=== PATIENT | female | born 1985 | race Hispanic/Latino ===

== ENCOUNTER 2017-08-06 18:51 | Emergency (ER) | payer OTHER, SELFPAY ==
[2017-08-06] MEDS ORDERED: Lidocaine 1% w/Epinephrine 1:100K 20 ML VIAL ONE (19:25)
[2017-08-06] MEDS ORDERED: Bacitracin Zinc 1 Packet ONE (19:25)
[2017-08-06] MEDS ORDERED: Adacel (T-DAP) 0.5 ML VIAL ONE (19:36)
--- NOTE | 2017-08-06 20:55 | RAD ---
LEFT HAND INDEX FINGER THREE VIEWS: 08/06/17 HISTORY: Trauma. Laceration. COMPARISON: None. FINDINGS: No radiopaque foreign body. No fracture. No cortical irregularity. There is soft tissue laceration al claire the proximal phalanx. IMPRESSION: 1. No radiopaque foreign body. No fracture. 2. Proximal phalanx soft tissue laceration is noted. POS: [facility]
== END 2017-08-06 21:02 | disposition home or self-care (01) ==
LOC: ERS 18:51
DX: S61.211A Laceration without foreign body of left index finger without damage to nail, initial encounter (principal); F17.210 Nicotine dependence, cigarettes, uncomplicated; Z23 Encounter for immunization; W26.0XXA Contact with knife, initial encounter
CPT/HCPCS: 12001; 90471; 90715; J2001

== ENCOUNTER 2017-08-21 16:25 | Emergency (ER) | payer SELFPAY | END 2017-08-21 17:08 | disposition home or self-care (01) | LOC: ERS 16:25 | DX: S61.211D Laceration without foreign body of left index finger without damage to nail, subsequent encounter (principal); R20.2 Paresthesia of skin; F17.210 Nicotine dependence, cigarettes, uncomplicated ==

== ENCOUNTER 2019-08-07 12:44 | Emergency (ER) | payer OTHER ==
[2019-08-08 16:49] LABS: SARS-CoV-2 MS2 Positive; SARS-CoV-2 N Gene Negative; SARS-CoV-2 S Gene Negative; SARS-CoV-2 orf1ab Negative
== END 2019-08-07 13:39 | disposition home or self-care (01) ==
LOC: ERS 12:44
DX: Z20.828 Contact with and (suspected) exposure to other viral communicable diseases (principal); F17.210 Nicotine dependence, cigarettes, uncomplicated
CPT/HCPCS: 87635; 99283; U0003

== ENCOUNTER 2023-08-13 23:35 | Emergency (ER) | payer BC, OTHER | END 2023-08-14 00:08 | LOC: ERS 23:35 | DX: S80.12XA Contusion of left lower leg, initial encounter (principal); S60.012A Contusion of left thumb without damage to nail, initial encounter; V89.2XXA Person injured in unspecified motor-vehicle accident, traffic, initial encounter | CPT/HCPCS: 99283 ==